=== PATIENT | female | born 1965 | race Caucasian/White ===

== ENCOUNTER → 2016-08-25 | Outpatient (CLI) | payer BC ==
--- NOTE | 2016-08-29 07:39 | MM ---
Reason for exam: screening (asymptomatic). Last mammogram was performed 2 years and 11 months ago. History: Family history of breast cancer in aunt. Physical Findings: A clinical breast exam by your physician is recommended on an annual basis and results should be correlated with mammographic findings. MG 3D Screening Mammo W/Cad Bilateral CC and MLO view(s) were taken. Prior study comparison: September 12, 2013, CAD bilateral diagnostic mammogram. January 29, 2010, bilateral diagnostic digital mammog. There are scattered fibroglandular densities. No significant changes when compared with prior studies. ASSESSMENT: Negative, BI-RAD 1 RECOMMENDATION: Routine screening mammogram of both breasts in 1 year.
== END | disposition home or self-care (01) ==
LOC: RADMAMWWP 13:20
PROVIDERS: ATTEND Family Medicine
DX: Z12.31 Encounter for screening mammogram for malignant neoplasm of breast (principal)
CPT/HCPCS: 77063; G0202

== ENCOUNTER → 2017-03-06 | Outpatient (CLI) | payer BC ==
--- NOTE | 2017-03-06 15:32 | CT ---
EXAMINATION TYPE: CT ChestAbdPelvis w con DATE OF EXAM: 03/06/2017 COMPARISON: CTA chest October 07, 2014. CT abdomen and pelvis October 02, 2014. Original PET/CT September 07, 2013. HISTORY: Lymphoma follow-up. Patient states it originated in pelvis region. CT DLP: 1304.80 mGycm. Automated Exposure Control for Dose Reduction was Utilized. CONTRAST: CT scan of the thorax, abdomen and pelvis is performed with oral and with IV Contrast, patient injec rob with 100 mL of Omnipaque 300. FINDINGS: LUNGS: The lungs are grossly clear, there is no concerning parenchymal mass or nodule identified. T here is no pleural effusion or pneumothorax seen. The tracheobronchial tree is patent. MEDIASTINUM: There are no greater than 1 cm hilar or mediastinal lymph nodes. No cardiomegaly or pe ricardial effusion is seen. OTHER: No additional significant abnormality is seen. LIVER/GB: Cholecystectomy clips are redemonstrated. PANCREAS: No significant abnormality is seen. SPLEEN: No significant abnormality is seen. ADRENALS: No significant abnormality is seen. KIDNEYS: Subcentimeter lesion laterally mid to lower pole level right kidney on series 7 image 35 is too small to further characterize but presumed benign and felt to reflect simple cyst. BOWEL: Normal-appearing appendix is seen from cecum in the right lower quadrant. There is no suspicio us small or large bowel dilatation. GENITAL ORGANS: Uterus is surgically absent or markedly atrophic in appearance. LYMPH NODES: No greater than 1cm abdominal or pelvic lymph nodes are appreciated. There is mild hazin ess and prominent subcentimeter nodularity left upper to midabdomen near adrenal gland and mid to dis nadira posterior pancreatic body level. Slightly prominent lymph nodes throughout the left upper to mid abdominal mesentery for reference axial image 71 are redemonstrated with mild fat stranding. This is improved from older PET/CT, not significantly changed or worsened from recent CT September 2014. OSSEOUS STRUCTURES: No significant abnormality is seen. OTHER: No significant additional abnormality is seen. IMPRESSION: Stable mild fat stranding and prominent but subcentimeter adenopathy in the left upper to mid abdomen with peritoneal and retroperitoneal involvement felt to reflect treated lymphoma. No new suspicious adenopathy is identified.
== END | disposition home or self-care (01) ==
LOC: RADCTMAIN 13:16
PROVIDERS: ATTEND Family Medicine
DX: C82.98 Follicular lymphoma, unspecified, lymph nodes of multiple sites (principal)
CPT/HCPCS: 71260; 74177; Q9967

== ENCOUNTER → 2019-07-25 | Outpatient (CLI) | payer OTHER ==
--- NOTE | 2019-07-25 16:00 | CT ---
EXAMINATION TYPE: CT ChestAbdPelvis w con DATE OF EXAM: 07/25/2019 COMPARISON: Previous exam 03/06/2017 HISTORY: LYMPHOMA FOLLOW UP CT DLP: 1846 mGycm Automated exposure control for dose reduction was used. CONTRAST: CT scan of the chest, abdomen and pelvis is performed with Oral Contrast and with IV Contrast, patien t injected with 100 mL of Isovue 300. FINDINGS: LUNGS: The lungs are grossly clear, there is no concerning parenchymal mass or nodule identified. T here is no pleural effusion or pneumothorax seen. The tracheobronchial tree is patent. MEDIASTINUM: There are no greater than 1 cm hilar or mediastinal lymph nodes. No pericardial effusi on is seen. AORTA: No significant abnormality is seen. OTHER: No additional significant abnormality is seen. LIVER/GB: No significant interval change is appreciated, liver is borderline enlarged as on prior, pa tient is post cholecystectomy. PANCREAS: No significant abnormality is seen. SPLEEN: No significant abnormality is seen. ADRENALS: No significant abnormality is seen. KIDNEYS: No significant abnormality is seen. REPRODUCTIVE ORGANS: No gross abnormality seen. BOWEL: No significant abnormality is seen. Mild prominence of the soft tissues at the base of the ce cum is again noted at the origin of the appendix, the appendix is not inflamed FREE AIR: No Free Air visible. ASCITES: None seen. RETROPERITONEAL ADENOPATHY: Retroperitoneal nodes in the upper abdomen are not enlarged, show some i mprovement, minimal residual stranding is noted as compared to prior exam. LYMPH NODES: Small mesenteric nodes are again seen. URINARY BLADDER: No significant abnormality is seen. PELVIC ADENOPATHY: None visualized. OSSEOUS STRUCTURES: No significant abnormality is seen. IMPRESSION: No evident recurrence. Findings are similar to prior exam.
== END | disposition home or self-care (01) ==
LOC: RADCTMAIN 13:12
PROVIDERS: ATTEND Family Medicine
DX: Z08 Encounter for follow-up examination after completed treatment for malignant neoplasm (principal); Z85.72 Personal history of non-Hodgkin lymphomas
CPT/HCPCS: 71260; 74177; Q9967

== ENCOUNTER 2021-08-27 07:39 | Day surgery (SDC) | payer OTHER ==
[2021-08-09 10:54] VITALS: BMI 33.6
[~2021-08-27 07:39] MED LIST: LACTATED RINGERS 1,000 ML IV SCH
[2021-08-27 08:02] VITALS: TEMP 97.4
[2021-08-27] MEDS ORDERED: LIDOCAINE 1% (10MG/ML) FOR IV START INTRADERMA ONE (08:14)
[2021-08-27] MEDS ORDERED: LACTATED RINGERS 1,000 ML IV ONE (08:15)
[2021-08-27] MEDS ORDERED: PROPOFOL 10 MG/ML 20 ML VIAL IV ONE (09:03)
[2021-08-27] MEDS ORDERED: LIDOCAINE 1% INJ 10MG/ML (20 ML MDV) ONE (09:03)
--- NOTE | 2021-08-27 09:28 | P.PCN ---
Date of Procedure: 08/27/21 Procedure(s) Performed: Brief history: Patient is a pleasant scheduled for an elective upper endoscopy as well as colonoscopy as a part of evaluation of GERD and prior history of colon polyps. Procedure performed: Esophagogastroduodenoscopy with biopsy Colonoscopy Preoperative diagnosis: GERD History of colon polyps Anesthesia: MAC Procedure: After informed consent was obtained from the patient was brought into the endoscopy unit and IV sedation was administered by anesthesia under continuous monitoring. Initially upper endoscopy was done. The Olympus GF 160 video endoscope was inserted inserted into the mouth and esophagus intubated without any difficulty and was gradually advanced into the stomach and duodenum and carefully examined. The bulb and second part of the duodenum appeared normal. The scope was then withdrawn into the stomach adequately insufflated with air and upon careful examination the antrum and mild gastritis and biopsies were done from this area. The body, cardia and fundus appeared normal. The scope was then withdrawn into the esophagus. The GE junction was located at 40 cm to the incisors. It appeared regular with no erythema erosions or ulcerations. Rest of the esophagus appeared normal. Patient tolerated the procedure well. At this time the patient continued to remain sedation. Initial digital rectal examination was normal. Olympus CF 160 video colonoscope was then inserted into the rectum and gradually advanced to the cecum without any difficulty. Careful examination was performed as the scope was gradually being withdrawn. The prep was excellent. The cecum, ascending colon, transverse colon, descending colon, sigmoid colon and rectum appeared normal. Retroflexion was performed in the rectum and no lesions were noted. Patient tolerated the procedure well. Impression: 1. Upper endoscopy revealed mild antral gastritis but no evidence of esophagitis. 2. Colonoscopy was normal limits with no evidence of colitis or colorectal neoplasia. Recommendations: Findings of this examination were discussed with the patient as well as a family. She was advised to have a repeat screening colonoscopy in 10 years. He'll continue with Protonix 40 mg daily and continue to follow antireflux measures.
[2021-08-27 09:45] VITALS: BP 136/75; PULSE 80; RESP 16
== END 2021-08-27 10:00 | disposition home or self-care (01) ==
LOC: ORWHC2ENDO 07:39
PROVIDERS: ATTEND Internal Medicine Gastroenterology
DX: Z12.11 Encounter for screening for malignant neoplasm of colon (principal); K29.50 Unspecified chronic gastritis without bleeding; K21.9 Gastro-esophageal reflux disease without esophagitis; Z86.010 Personal history of colon polyps; Z79.899 Other long term (current) drug therapy
CPT/HCPCS: 88305; 43239; J2001; J2704; G0105

== ENCOUNTER → 2022-09-14 | Outpatient (CLI) | payer OTHER ==
--- NOTE | 2022-09-14 11:19 | CT ---
EXAMINATION TYPE: CT ChestAbdPelvis w con DATE OF EXAM: 09/14/2022 COMPARISON: 07/25/2019 HISTORY: follow up to non hodgkins lymphoma CT DLP: 1580 mGycm Automated exposure control for dose reduction was used. CONTRAST: CT scan of the chest, abdomen and pelvis is performed with Oral Contrast and with IV Contrast, patien t injected with 70 mL of Isovue 300. FINDINGS: LUNGS: The lungs are grossly clear, there is no concerning parenchymal mass or nodule identified. T here is no pleural effusion or pneumothorax seen. The tracheobronchial tree is patent. Biapical pleu ral thickening. Emphysematous changes are noted MEDIASTINUM: There are no greater than 1 cm hilar or mediastinal lymph nodes. Shotty right hilar an d mediastinal lymphadenopathy stable. No pericardial effusion is seen. OTHER: No additional significant abnormality is seen. LIVER/GB: Liver is low in attenuation. Correlate for hepatic steatosis. Postcholecystectomy changes a re seen. PANCREAS: No significant abnormality is seen. SPLEEN: No significant abnormality is seen. ADRENALS: No significant abnormality is seen. KIDNEYS: No significant abnormality is seen. BOWEL: There is a hiatal hernia. LYMPH NODES: There is a pathologic lymph nodes now seen within the left mesentery. The largest measur ing short axis I.6 cm axial image 75 and adjacent 1.2 cm short axis lymph node axial image 75. Multip le additional less than 1 cm nodules are seen in the mesentery some of which are new relative to prio r exam. Retroperitoneal haziness and nodularity is stable all nodules measuring less than 1 cm. There does now appear to be a hazy pattern to the mesentery which can be associated with a mesenteritis or panniculitis. Occasionally lymphangitic involvement is also in the differential diagnosis. OSSEOUS STRUCTURES: Hypertrophic and degenerative changes of the spine. OTHER: Aorta of normal caliber. There is atherosclerotic changes. Postcholecystectomy changes are see n. IMPRESSION: 1. Interval development of pathologic adenopathy within the mesentery with the largest node measuring short axis of 1.6 cm correlate for recurrent lymphoma. 2. Nonspecific haziness to the mesentery can be associated with a panniculitis or mesenteritis. Lymph angitic involvement not excluded. 3. Stable mediastinal, hilar, and retroperitoneal shotty lymphadenopathy.
== END | disposition home or self-care (01) ==
LOC: RADCTMAIN 08:53
PROVIDERS: ATTEND Family Medicine
DX: M79.3 Panniculitis, unspecified (principal); Z85.72 Personal history of non-Hodgkin lymphomas; R59.0 Localized enlarged lymph nodes
CPT/HCPCS: 71260; 74177; Q9967

== ENCOUNTER → 2022-09-27 | Outpatient (CLI) | payer OTHER ==
--- NOTE | 2022-09-27 09:29 | US ---
EXAMINATION TYPE: US carotid duplex BILAT DATE OF EXAM: 09/27/2022 COMPARISON: NONE CLINICAL HISTORY: R00.2, I10. Hypertension, heart palpations TECHNIQUE: Carotid duplex ultrasound examination. Indirect Doppler criteria was utilized. FINDINGS: EXAM MEASUREMENTS: RIGHT: Peak Systolic Velocity (PSV) cm/sec ----- Right CCA: 66.6 ----- Right ICA: 117.3 ----- Right ECA: 131.8 ICA/CCA ratio: 1.8 RIGHT: End Diastole cm/sec ----- Right CCA: 22.6 ----- Right ICA: 44.8 ----- Right ECA: 33.3 LEFT: Peak Systolic Velocity (PSV) cm/sec ----- Left CCA: 79.8 ----- Left ICA: 83.1 ----- Left ECA: 162.5 ICA/CCA ratio: 1.0 LEFT: End Diastole cm/sec ----- Left CCA: 21.5 ----- Left ICA: 31.4 ----- Left ECA: 26.8 VERTEBRALS (direction of flow): Right Vertebral: Antegrade Left Vertebral: Antegrade Rhythm: Normal POLICY SERVICES REPRESENTATIVE NOTES: Bilateral intimal wall thickening with some plaque at bilateral bulbs extending in to the ICAs. No significant stenosis. IMPRESSION: Less than 50% stenosis of the bilateral carotid bifurcations. Criteria for Assigning % of Stenosis / Diameter reduction (Estimation based on the indirect measurements of the internal carotid artery velocities (ICA PSV). 1. Normal (no stenosis)=ICA PSV < 125 cm/s: ratio < 2.0: ICA EDV<40 cm/s. 2. Less than 50% stenosis=ICA PSV < 125 cm/s: ratio < 2.0: ICA EDV<40 cm/s. 3. 50 to 69% stenosis=ICA PSV of 125 to 230 cm/s: ration 2.0 ? 4.0: ICA EDV 40-100 cm/s. 4. Greater than 70% stenosis to near occlusion= ICA PSV > 230 cm/s: ratio > 4.0: ICA EDV > 100 cm/s. 5. Near occlusion= ICA PSV velocities may be low or undetectable: variable ratio and ICA EDV. 6. Total occlusion=unable to detect flow.
--- NOTE | 2022-09-27 18:22 | CA ---
Stress Echo Report Nancy Quevedo Age: 57 Gender: F : 1965 Exam Date: 09/27/2022 09:18 Exam Location: [facility] Ht (in): Wt (lb): Ordering Physician: Kasie Whitehead DO Referring Physician: KASIE WHITEHEAD,, Occupational Therapist: Kristie Bahena RDCS Technologist Procedure CPT: Indication: R00.2 I10 ICD-9 Codes: Rhythm: Patient History: Family history, Hypertension Cardiac Medications: NONE Medications in past 24 hours: Contrast: Lumason Stress Results Protocol: Noah Total dose(mL): 5 Exercise Duration (min:sec): 5:[address] Depression (mm): Angina Score: Fish Score: METS: 7.1 Resting HR: 86 Resting BP: 109 / 59 Peak HR: 149 Peak BP: 210 / 61 Max Predicted HR: 161 93 % Max Predicted HR Target HR: 137 Double Product: [id number] Stress Summary: The patient's target heart rate was achieved BP Response: Normal Reason for Termination: Reached target heart rate or work-load, Maximal effort/unable to continue Cardiac Symptoms: Dyspnea ECG Analysis Resting ECG: Stress ECG: Arrhythmia: Echo Analysis Resting Echo: Peak Echo Analysis: MEASUREMENTS (Male/Female) Normal Values CONCLUSIONS Baseline heart rate 78 beats a minute, Baseline blood pressure 109/59 mmHg Baseline 12-lead EKG shows sinus rhythm with normal ST segments Patient exercised on a Noah protocol for 5 minutes 19 seconds She complained of shortness of breath at peak exercise Peak heart rate 140 beats a minute. Peak blood pressure 210/61 mmHg No chest discomfort There was no ECG evidence for ischemia Baseline LV size and function was normal no wall motion abnormalities Excellent augmentation overall LV contractility was noted without development of any wall motion abnormalities at peak exercise @Recovery regional and global LV systolic function was normal Impression Very average excess capacity Mildly hypertensive response to exercise No ECG or echocardiographic evidence for ischemia at this workload level Dr. Rogelio Vásquez MD (Electronically Signed) Final Date: 27 September 2022 18:21
== END | disposition home or self-care (01) ==
LOC: RADUSWWP 08:05
PROVIDERS: ATTEND Family Medicine
DX: I65.23 Occlusion and stenosis of bilateral carotid arteries (principal); I10 Essential (primary) hypertension; R00.2 Palpitations
CPT/HCPCS: 93351; 93880; Q9950

== ENCOUNTER → 2022-10-12 | Outpatient (CLI) | payer OTHER ==
--- NOTE | 2022-10-13 19:29 | BD ---
EXAMINATION TYPE: Axial Bone Density DATE OF EXAM: 10/12/2022 CLINICAL HISTORY: 57 years old Female. ICD-10 CODE: Z78.0 Asymptomatic menopausal state Height: 5 ft 6 1/2 in Weight: 210 FRAX RISK QUESTIONS: Alcohol (3 or more units per day): no Family History (Parent hip fracture): no Glucocorticoids (More than 3mos): unsure (Ex: prednisone, prednisolone, methylprednisolone, dexamethasone, and hydrocortisone). History of Fracture in Adulthood: yes Secondary Osteoporosis: 1. Type 1 Diabetes: no 2. Hyperthyroidism: no 3. Menopause before 45: no 4. Malnutrition: no 5. Chronic liver disease: no Rheumatoid Arthritis: yes Current Tobacco Use: no RISK FACTORS HISTORY OF: Surgery to Spine/Hip(right/left)/Wrist (right/left): no Family History of Osteoporosis: yes Active: no Diet low in dairy products/other sources of calcium: no Postmenopausal woman: yes Take estrogen and/or progesterone medications: no Lost more than 2 inches in height since high school: no Frequent falls: no Poor Health: good Hyperparathyroidism: no Adrenal Insufficiency: unsure MEDICATIONS: Additional Medications: Wellbutrin, acid reflux meds, blood pressure meds, anxiety meds Additional History: just diagnosed with lymphoma EXAM MEASUREMENTS: Bone mineral densitometry was performed using the [employer]. Bone mineral density as measured about the Lumbar spine is: ----- L1-L4(G/cm2): 1.206 T Score Values are as follows: ----- L1: 0.2 ----- L2: 0.1 ----- L3: 1.0 ----- L4: -0.4 ----- L1-L4: 0.2 Z Score Values are as follows: ----- L1: 0.4 ----- L2: 0.2 ----- L3: 1.1 ----- L4: -0.3 ----- L1-L4: 0.4 baseline Bone mineral density about the R hip (g/cm2): 0.975 Bone mineral density about the L hip (g/cm2): 0.992 T Score values are as follows: -----R Neck: -0.5 -----L Neck: -0.3 -----R Total: 0.3 -----L Total: 0.6 Z Score values are as follows: -----R Neck: 0.1 -----L Neck: 0.2 -----R Total: 0.5 -----L Total: 0.8 baseline FRAX%s: The graph provided illustrates a 10.5 % chance for a major osteoporotic fx and a 0.3 % chance for the hips probability for fx in 10 years time. IMPRESSION: Normal (Values between +1 and -1 indicate normal bone mass). Consider repeating this study in 5 year s or sooner if there is some new clinical indication. NOTE: T-SCORE=SD OF THE YOUNG ADULT MEAN.
--- NOTE | 2022-10-13 20:00 | MM ---
Reason for Exam: Screening (asymptomatic). Last mammogram was performed 6 year(s) and 1 month(s) ago. Patient History: Menarche at age 10. First Full-Term at age 21. Left ovary removed at age 44. Right ovary removed at age 44. Hysterectomy at age 44. Postmenopausal. Maternal aunt had breast cancer. Risk Values: Lyric 5 year model risk: 1.2%. NCI Lifetime model risk: 6.7%. Prior Study Comparison: 06/21/2012 Screening Mammogram, [facility]. 09/12/2013 Bilateral Diagnostic Mammogram, [facility]. 08/25/2016 Bilateral Screening Mammogram, [facility]. Tissue Density: There are scattered fibroglandular densities. Findings: Analyzed By CAD. There is no suspicious group of microcalcifications or new suspicious mass in either breast. Overall Assessment: Negative, BI-RAD 1 Management: Screening Mammogram of both breasts in 1 year. 1. Patient should continue monthly self breast exams. 2. A clinical breast exam by your physician is recommended on an annual basis. 3. This exam should not preclude additional follow-up of suspicious palpable abnormalities. Electronically signed and approved by: Ganesh Frederick M.D. Radiologist
== END | disposition home or self-care (01) ==
LOC: RADMAMWWP 15:38
PROVIDERS: ATTEND Family Medicine
DX: Z12.31 Encounter for screening mammogram for malignant neoplasm of breast (principal); Z78.0 Asymptomatic menopausal state; Z80.3 Family history of malignant neoplasm of breast
CPT/HCPCS: 77067; 77080